=== PATIENT | female | born 1985 | race Caucasian/White ===

== ENCOUNTER 2019-12-17 15:23 | Emergency (ER) | payer OTHER, SELFPAY ==
[2019-12-17] VITALS (12 sets, daily range): BP systolic 116–128; BP diastolic 72–83; PULSE 62–87; RESP 16–25; TEMP 36.9; O2SAT 96–100; BMI 21.1
[2019-12-17 16:23] LABS: Add Manual Diff / Slide Review NO; Basophils Absolute Auto 0 /uL (0-100); Basophils Percent Auto 0.5 % (0-2); Eosinophils Absolute Auto 0 /uL (0-450); Eosinophils Percent Auto 0.7 % (2-4); Hematocrit 33.7 % (36-46); Hemoglobin 11.3 g/dL (12.0-16.0); Lymphocytes Absolute Auto 1500 /uL (1100-4500); Mean Corpuscular HGB Conc 33.6 % (30-36); Mean Corpuscular Hemoglobin 28.6 PG (26-34); Mean Corpuscular Volume 85.1 fL (80-100); Monocytes Absolute Auto 400 /uL (0-900); Monocytes Percent Auto 6.2 % (3-14); Neutrophils Absolute Auto 4100 /uL (1500-7000); Neutrophils Percent Auto 67.6 % (50-75); Platelet Count 213 X10^3/uL (150-400); Red Blood Cell Count 3.95 X10^6/uL (4.0-5.2); Red Cell Distribution Width 13.2 % (11.6-14.8); White Blood Cell Count 6.1 X10^3/uL (4.5-11.0)
[2019-12-17 16:31] LABS: INR 1.1 (0.9-1.3); Prothrombin Time 12.4 SECONDS (10.1-12.7)
[2019-12-17 16:34] LABS: D Dimer 939 ng/mL (<230); PTT Partial Thromboplastin Tim 41 SECONDS (26.4-36.2)
[2019-12-17 16:37] LABS: Lactate (Lactic Acid) 0.8 mmol/L (0.7-2.1)
[2019-12-17 16:39] LABS: Alanine Aminotransferase 25 IU/L (<35); Albumin 3.4 g/dL (3.5-5.0); Albumin Globulin Ratio 1.1 (1.0-2.8); Alkaline Phosphatase 62 U/L (38-126); Aspartate Aminotransferase 40 IU/L (14-36); BUN Creatinine Ratio 7.9 (6-22); Bilirubin Total 0.4 mg/dL (0.2-1.3); Blood Urea Nitrogen 7 mg/dL (7-17); Calcium 8.7 mg/dL (8.4-10.2); Carbon Dioxide 28 mmol/L (22-32); Chloride 107 mmol/L (98-107); Creatine Kinase 70 U/L (30-135); Estimated Glomerular Filt Rate > 60.0 mL/min (>60); Glucose 97 mg/dL (70-100); HEMOLYSIS < 15 (0-50); Magnesium 1.8 mg/dL (1.6-2.3); Potassium 3.6 mmol/L (3.4-5.1); Sodium 140 mmol/L (137-145); Total Protein 6.4 g/dL (6.3-8.2)
[2019-12-17 16:47] LABS: NT-proBNP (BNP-Adult 18+) 668 pg/mL (<125)
[2019-12-17 16:49] LABS: Troponin I < 0.012 ng/mL (0.01-0.034)
--- NOTE | 2019-12-17 16:53 | DI.CT.S_ITS ---
PROCEDURE: CT ANGIO CHEST PE PROTOCOL INDICATIONS: sob, post op, + ddimer TECHNIQUE: After the administration of intravenous contrast, 2 mm thick sections acquired from the pulmonary apices to the posterior costophrenic angles. 3-dimensional maximum intensity projection (MIP) coronal and sagittal reformats were then acquired through the thorax. For radiation dose reduction, the following was used: automated exposure control, adjustment of mA and/or kV according to patient size. COMPARISON: None. FINDINGS: Image quality: Excellent. Pulmonary arteries: There is enlargement of the main pulmonary artery, measuring up to 3.5 centimeters in diameter. No intraluminal filling defects are seen to suggest central pulmonary embolism. Lungs and pleura: Mild tree-in-bud nodularity is seen in the posterior portion of the right upper lobe, which is most likely infectious or inflammatory in etiology. The remainders of the lungs are clear. Small bilateral pleural effusions are present with atelectasis of the adjacent lung bases. There is no pneumothorax. Central and peripheral airways are patent. Mediastinum: Heart size is within normal limits, without pericardial effusion. No mediastinal or hilar adenopathy. Thoracic aorta is normal in caliber and enhancement. Esophagus is normal in caliber, without hiatal hernia. Bones and chest wall: No suspicious bony lesions. Ribs and thoracic spine appear intact throughout. Thyroid gland appears normal. No axillary or supraclavicular adenopathy. Abdomen: A 9 millimeter hypodense lesion in the right hepatic lobe is most likely a cyst. Visualized upper abdominal solid organs appear normal in the early arterial phase of enhancement. IMPRESSION: 1. No pulmonary embolism is seen. 2. Enlargement of the main pulmonary artery is seen measuring up to 3.5 centimeters in diameter, which is nonspecific but can be encountered in the setting of pulmonary hypertension. 3. Mild tree-in-bud nodularity in the posterior portion of the right upper lobe is most likely infectious or inflammatory in etiology. Recommend clinical correlation. 4. Small bilateral pleural effusions with atelectasis of the adjacent lung bases. Dictated by: Zen Villafuerte M.D. on 12/17/2019 at 17:17 Approved by: Zen Villafuerte M.D. on 12/17/2019 at 17:26
--- NOTE | 2019-12-17 16:53 | DI.CT.S_ITS ---
PROCEDURE: CT ABDOMEN PELVIS W CON INDICATIONS: post op appy, abscess TECHNIQUE: After the administration of intravenous contrast, 5 mm thick sections acquired from the diaphragm to the symphysis. 5 mm coronal and sagittal reformats were acquired. For radiation dose reduction, the following was used: automated exposure control, adjustment of mA and/or kV according to patient size. COMPARISON: None. FINDINGS: Image quality: Excellent. ABDOMEN: Lung bases: Small bilateral pleural effusions are seen with atelectasis of the adjacent lung bases. Solid organs: Subcentimeter hypodense lesions in the right hepatic lobe are too small to characterize, but most likely represents a cyst. The gallbladder appears normal. Biliary system is non dilated. Pancreas enhances normally. Spleen is normal in size and enhancement. No adrenal nodules. Kidneys demonstrate normal size and enhancement, without hydronephrosis. Peritoneum and bowel: Postsurgical changes are seen from recent appendectomy. There are no signs of bowel obstruction. A surgical drain is seen in the lower abdomen. A small amount of free fluid is seen in the pelvis. No definite well-formed abscess is seen. A small amount of pneumoperitoneum is seen adjacent to the tip of the surgical drain, most likely related to the prior surgery. Nodes and vessels: No retroperitoneal or mesenteric adenopathy by size criteria. Aorta and inferior vena cava are normal in size. Miscellaneous: No ventral hernias. PELVIS: Genitourinary: Bladder wall thickness is normal. The uterus appears normal. Small cysts are seen in both ovaries. Miscellaneous: No inguinal hernias or adenopathy. Bones: No suspicious bony lesions. No vertebral body compression fractures. IMPRESSION: 1. Postsurgical changes are seen from recent appendectomy. A small amount of free fluid is seen in the pelvis without a well-formed abscess. 2. Small bilateral pleural effusions with atelectasis of the adjacent lung bases. Dictated by: Zen Villafuerte M.D. on 12/17/2019 at 17:26 Approved by: Zen Villafuerte M.D. on 12/17/2019 at 17:34
[2019-12-17 16:55] LABS: Procalcitonin < 0.05 ng/mL (<0.5)
[2019-12-17 16:58] LABS: Pregnancy Test Serum,Qual Negative (Negative)
--- NOTE | 2019-12-17 18:26 | DI.US.S_ITS ---
PROCEDURE: US PERIPH VENOUS LOW EXTREM BI INDICATIONS: EDEMA, PAIN; RECENT SURGERY; DVT 6 YRS AGO TECHNIQUE: Real-time imaging, as well as color and pulse Doppler interrogation, were performed of the deep veins of both legs from the inguinal ligament to the popliteal fossa. COMPARISON: None. FINDINGS: Right: The common femoral, femoral and popliteal veins are normally compressible, and free of intraluminal thrombus. Color and pulse Doppler demonstrate normal phasic intravascular flow. There is normal augmentation response to distal compression maneuver. Left: The common femoral, femoral and popliteal veins are normally compressible, and free of intraluminal thrombus. Color and pulse Doppler demonstrate normal phasic intravascular flow. There is normal augmentation response to distal compression maneuver. IMPRESSION: Negative for deep venous thrombosis of the bilateral lower extremities. Dictated by: Zen Villafuerte M.D. on 12/17/2019 at 19:46 Approved by: Zen Villafuerte M.D. on 12/17/2019 at 19:47
[2019-12-17] MEDS: AMOXICILLIN/CLAV 875/125 MG 1 TAB PO (20:12)
[2019-12-17] MEDS: DOXYCYCLINE HYCLATE 100 MG TABLET PO (20:13)
[2019-12-17] MEDS: HYDROCODONE/ACET 5/325 TABLET 1 TAB PO (20:47)
--- NOTE | 2019-12-17 21:00 | ED_ITS ---
HPI - SOB/Dyspnea <FAROOQ RasmussenBC - Last Filed: 12/17/19 21:08> General Chief Complaint: Shortness of Breath/Dyspnea Stated Complaint: Possible PE Time Seen by Provider: 12/17/19 15:55 Source: patient and family Mode of arrival: EMS Limitations: no limitations History of Present Illness HPI Narrative: The patient is a 34-year-old female nonsmoker with history of recent acute appendicitis who presents by EMS from an outside facility. The patient had an appendectomy done on Monday the . This was done at [facility] by Dr. Camp and was complicated with an abscess resulting in a DENNYS drain. The patient presented to [facility] today with a chief complaint of shortness of breath and slight substernal chest pain after having ?twinges in the calves.She was found to have an elevated D-dimer and BNP there, was referred to this facility by EMS as there is concern for a pulmonary embolism and her CT scanner is down. The patient has also had a DVT post prior. She states that she has some substernal chest pain, does not want any pain medications. She states that both of her legs are swollen, left likely worse than right. Denies any fevers, does complain of fatigue. She is not currently taking any antibiotics at this point time. Related Data Previous Rx's Medication Instructions Recorded amoxicillin-pot clavulanate 1 tab PO BID 7 Days #14 tab 12/17/19 [Augmentin] doxycycline hyclate 100 mg PO BID 7 Days #14 cap 12/17/19 Allergies Allergy/AdvReac Type Severity Reaction Status Date / Time No Known Drug Allergies Allergy Verified 12/17/19 15:37 Review of Systems <RAQUEL Rasmussen - Last Filed: 12/17/19 21:08> Review of Systems Narrative: GENERAL: Denies chills, fatigue, malaise, fever, sweats. HEENT: Denies sinus pain, ear pain, sore throat, difficulty swallowing, dizziness. RESPIRATORY: See HPI CARDIOVASCULAR: Denies chest pain, palpitations, orthopnea, edema, GASTROINTESTINAL: See HPI : Denies dysuria, frequency, incontinence, hematuria, urinary retention. MUSCULOSKELETAL: denies weakness, joint pain, or bony pain SKIN: Denies rash, skin lesions, or other NEUROLOGIC: Denies weakness, headache, numbness, change in speech, confusion, seizures, incoordination. PSYCHIATRIC: No concerning psychosocial issues. 12 point review of systems is negative except for those stated above Patient History <RAQUEL Rasmussen - Last Filed: 12/17/19 21:08> Surgical History (Updated 12/17/19 @ 21:02 by RAQUEL Rasmussen) History of appendectomy (Acute) Social History Smoking Status: Never smoker Smoking Status: Never smoker alcohol intake frequency: holidays/special occasions only Substance Use Type: does not use Exam <RAQUEL Rasmussen - Last Filed: 12/17/19 21:08> Narrative Exam Narrative: GENERAL: This is a well-nourished, well-developed patient, in no acute distress HEAD: Atraumatic. Normocephalic. No temporal or scalp tenderness. EYES: Pupils equal round and reactive. Extraocular motions intact. No scleral icterus. No injection or drainage. ENT: Nose without bleeding, purulent drainage or septal hematoma. Wearing mass. Airway patent. NECK: Trachea midline. No JVD or lymphadenopathy. Supple, nontender, no meningeal signs. CARDIOVASCULAR: Regular rate and rhythm RESPIRATORY: Clear to auscultation. Breath sounds equal bilaterally. No wheezes, rales, or rhonchi. No cough. No increased respiratory effort. No accessory muscle use. Speaking full sentences. GASTROINTESTINAL: Abdomen soft, diffusely tender, nondistended. No hepato-sple nomegaly, or palpable masses. No guarding. Active bowel sounds all [address] quadrants. DENN[address] drain in place with serosanguineous drainage. EXTREMITIES: No clubbing, cyanosis, or edema. No joint tenderness, effusion, or edema noted. BACK: Nontender without deformity or crepitance. No flank tenderness. NEURO: AOx3. SKIN: Postoperative abdominal surgeons clean dry and intact, no extending redness or purulent drainage Initial Vital Signs Initial Vital Signs: Vital Signs Pulse Rate 71 12/17/19 15:37 Pulse Oximetry 97 12/17/19 15:37 <Smiley Marroquin MD - Last Filed: 12/20/19 12:56> Initial Vital Signs Initial Vital Signs: Vital Signs Pulse Rate 71 12/17/19 15:37 Pulse Oximetry 97 12/17/19 15:37 Scores <MAHESH Rasmussen-BC - Last Filed: 12/17/19 21:08> GCS Mariella coma scale eye opening: Spontaneous Mariella coma scale verbal response: Orientated Mariella coma scale motor response: Obey commands [place] coma scale total score: 15 Course <MAHESH Rasmussen-BC - Last Filed: 12/17/19 21:08> Orders Ordered: Discontinued Medications Hydrocodone Bitart/Acetaminophen ([place] 5/325) 1 tab PO NOW ONE Stop: 12/17/19 20:32 Last Admin: 12/17/19 20:47 Dose: 1 tab Documented by: MICHAELM Amoxicillin/Clavulanate Potassium (Augmentin 875-125 Mg) 1 tab PO NOW ONE Stop: 12/17/19 19:57 Last Admin: 12/17/19 20:12 Dose: 1 tab Documented by: SUDHIR Doxycycline Hyclate (Vibramycin) 100 mg PO NOW ONE Stop: 12/17/19 19:57 Last Admin: 12/17/19 20:13 Dose: 100 mg Documented by: SUDHIR Vital Signs Vital signs: Vital Signs - 8 hr 12/17/19 15:37 12/17/19 15:38 12/17/19 16:00 Temperature Pulse Rate 71 71 75 Respiratory Rate 17 Blood Pressure 126/80 124/78 Pulse Oximetry 97 98 98 12/17/19 16:30 12/17/19 17:16 12/17/19 17:30 Temperature Pulse Rate 67 77 62 Respiratory Rate 18 18 Blood Pressure 128/82 Pulse Oximetry 99 96 100 12/17/19 17:38 12/17/19 18:00 12/17/19 18:30 Temperature Pulse Rate 72 66 63 Respiratory Rate 16 17 16 Blood Pressure 123/79 119/77 116/75 Pulse Oximetry 100 100 99 12/17/19 19:00 12/17/19 19:30 12/17/19 20:55 Temperature 98.5 F Pulse Rate 63 87 63 Respiratory Rate 16 25 H 16 Blood Pressure 117/72 117/82 126/83 Pulse Oximetry 97 98 <Smiley Marroquin MD - Last Filed: 12/20/19 12:56> Orders Ordered: Discontinued Medications Hydrocodone Bitart/Acetaminophen ([place] 5/325) 1 tab PO NOW ONE Stop: 12/17/19 20:32 Last Admin: 12/17/19 20:47 Dose: 1 tab Documented by: PARTHOTEM Amoxicillin/Clavulanate Potassium (Augmentin 875-125 Mg) 1 tab PO NOW ONE Stop: 12/17/19 19:57 Last Admin: 12/17/19 20:12 Dose: 1 tab Documented by: SUDHIR Doxycycline Hyclate (Vibramycin) 100 mg PO NOW ONE Stop: 12/17/19 19:57 Last Admin: 12/17/19 20:13 Dose: 100 mg Documented by: SUDHIR Vital Signs Vital signs: Vital Signs - 8 hr 12/17/19 15:37 12/17/19 15:38 12/17/19 16:00 Temperature Pulse Rate 71 71 75 Respiratory Rate 17 Blood Pressure 126/80 124/78 Pulse Oximetry 97 98 98 12/17/19 16:30 12/17/19 17:16 12/17/19 17:30 Temperature Pulse Rate 67 77 62 Respiratory Rate 18 18 Blood Pressure 128/82 Pulse Oximetry 99 96 100 12/17/19 17:38 12/17/19 18:00 12/17/19 18:30 Temperature Pulse Rate 72 66 63 Respiratory Rate 16 17 16 Blood Pressure 123/79 119/77 116/75 Pulse Oximetry 100 100 99 12/17/19 19:00 12/17/19 19:30 12/17/19 20:55 Temperature 98.5 F Pulse Rate 63 87 63 Respiratory Rate 16 25 H 16 Blood Pressure 117/72 117/82 126/83 Pulse Oximetry 97 98 MDM - SOB/Dyspnea <MAHESH Rasmussen-BC - Last Filed: 12/17/19 21:08> Lab Data Result diagrams: 12/17/19 16:13 12/17/19 16:13 Labs: Lab Results 12/17/19 12/17/19 12/17/19 Range/Units 16:13 16:13 16:13 WBC (4.5-11.0) X10^3/uL RBC (4.0-5.2) X10^6/uL Hgb (12.0-16.0) g/dL Hct (36-46) % MCV (80-100) fL MCH (26-34) PG MCHC (30-36) % RDW (11.6-14.8) % Plt Count (150-400) X10^3/uL Neut % (Auto) (50-75) % Lymph % (Auto) (25-40) % Frontier % (Auto) (3-14) % Eos % (Auto) (2-4) % Baso % (Auto) (0-2) % Neut # (Auto) (8594-8520) /uL Lymph # (Auto) (2721-0386) /uL Frontier # (Auto) (0-900) /uL Eos # (Auto) (0-450) /uL Baso # (Auto) (0-100) /uL PT 12.4 (10.1-12.7) SECONDS INR 1.1 (0.9-1.3) APTT 41 H (26.4-36.2) SECONDS D-Dimer 939 H (<230) ng/mL Sodium (137-145) mmol/L Potassium (3.4-5.1) mmol/L Chloride (98-107) mmol/L Carbon Dioxide (22-32) mmol/L BUN (7-17) mg/dL Creatinine (0.52-1.04) mg/dL Estimated GFR (>60) mL/min BUN/Creatinine Ratio (6-22) Glucose (70-100) mg/dL Lactate (0.7-2.1) mmol/L Calcium (8.4-10.2) mg/dL Magnesium (1.6-2.3) mg/dL Total Bilirubin (0.2-1.3) mg/dL AST (14-36) IU/L ALT (<35) IU/L Alkaline Phosphatase (38-126) U/L Total Creatine Kinase (30-135) U/L CK-MB (CK-2) CK-MB (CK-2) Rel Index Troponin I (0.01-0.034) ng/mL NT-Pro-B Natriuret Pep 668 H (<125) pg/mL Total Protein (6.3-8.2) g/dL Albumin (3.5-5.0) g/dL Globulin (1.7-4.1) g/dL Albumin/Globulin Ratio (1.0-2.8) Procalcitonin (<0.5) ng/mL Serum , Qual Negative (Negative) COVID-19 PCR (Not Detected) 12/17/19 12/17/1920 Range/Units 16:13 16:13 16:13 WBC 6.1 (4.5-11.0) X10^3/uL RBC 3.95 L (4.0-5.2) X10^6/uL Hgb 11.3 L (12.0-16.0) g/dL Hct 33.7 L (36-46) % MCV 85.1 (80-100) fL MCH 28.6 (26-34) PG MCHC 33.6 (30-36) % RDW 13.2 (11.6-14.8) % Plt Count 213 (150-400) X10^3/uL Neut % (Auto) 67.6 (50-75) % Lymph % (Auto) 25.0 (25-40) % Frontier % (Auto) 6.2 (3-14) % Eos % (Auto) 0.7 L (2-4) % Baso % (Auto) 0.5 (0-2) % Neut # (Auto) 4100 (9939-1280) /uL Lymph # (Auto) 1500 (2410-5055) /uL Frontier # (Auto) 400 (0-900) /uL Eos # (Auto) 0 (0-450) /uL Baso # (Auto) 0 (0-100) /uL PT (10.1-12.7) SECONDS INR (0.9-1.3) APTT (26.4-36.2) SECONDS D-Dimer (<230) ng/mL Sodium 140 (137-145) mmol/L Potassium 3.6 (3.4-5.1) mmol/L Chloride 107 (98-107) mmol/L Carbon Dioxide 28 (22-32) mmol/L BUN 7 (7-17) mg/dL Creatinine 0.89 (0.52-1.04) mg/dL Estimated GFR > 60.0 (>60) mL/min BUN/Creatinine Ratio 7.9 (6-22) Glucose 97 (70-100) mg/dL Lactate (0.7-2.1) mmol/L Calcium 8.7 (8.4-10.2) mg/dL Magnesium 1.8 (1.6-2.3) mg/dL Total Bilirubin 0.4 (0.2-1.3) mg/dL AST 40 H (14-36) IU/L ALT 25 (<35) IU/L Alkaline Phosphatase 62 (38-126) U/L Total Creatine Kinase 70 (30-135) U/L CK-MB (CK-2) TNP CK-MB (CK-2) Rel Index TNP Troponin I < 0.012 (0.01-0.034) ng/mL NT-Pro-B Natriuret Pep (<125) pg/mL Total Protein 6.4 (6.3-8.2) g/dL Albumin 3.4 L (3.5-5.0) g/dL Globulin 3.0 (1.7-4.1) g/dL Albumin/Globulin Ratio 1.1 (1.0-2.8) Procalcitonin < 0.05 (<0.5) ng/mL Serum , Qual (Negative) COVID-19 PCR (Not Detected) 12/17/19 12/17/19 Range/Units 16:13 20:50 WBC (4.5-11.0) X10^3/uL RBC (4.0-5.2) X10^6/uL Hgb (12.0-16.0) g/dL Hct (36-46) % MCV (80-100) fL MCH (26-34) PG MCHC (30-36) % RDW (11.6-14.8) % Plt Count (150-400) X10^3/uL Neut % (Auto) (50-75) % Lymph % (Auto) (25-40) % Frontier % (Auto) (3-14) % Eos % (Auto) (2-4) % Baso % (Auto) (0-2) % Neut # (Auto) (2252-8753) /uL Lymph # (Auto) (6708-4668) /uL Frontier # (Auto) (0-900) /uL Eos # (Auto) (0-450) /uL Baso # (Auto) (0-100) /uL PT (10.1-12.7) SECONDS INR (0.9-1.3) APTT (26.4-36.2) SECONDS D-Dimer (<230) ng/mL Sodium (137-145) mmol/L Potassium (3.4-5.1) mmol/L Chloride (98-107) mmol/L Carbon Dioxide (22-32) mmol/L BUN (7-17) mg/dL Creatinine (0.52-1.04) mg/dL Estimated GFR (>60) mL/min BUN/Creatinine Ratio (6-22) Glucose (70-100) mg/dL Lactate 0.8 (0.7-2.1) mmol/L Calcium (8.4-10.2) mg/dL Magnesium (1.6-2.3) mg/dL Total Bilirubin (0.2-1.3) mg/dL AST (14-36) IU/L ALT (<35) IU/L Alkaline Phosphatase (38-126) U/L Total Creatine Kinase (30-135) U/L CK-MB (CK-2) CK-MB (CK-2) Rel Index Troponin I (0.01-0.034) ng/mL NT-Pro-B Natriuret Pep (<125) pg/mL Total Protein (6.3-8.2) g/dL Albumin (3.5-5.0) g/dL Globulin (1.7-4.1) g/dL Albumin/Globulin Ratio (1.0-2.8) Procalcitonin (<0.5) ng/mL Serum , Qual (Negative) COVID-19 PCR Not detected (Not Detected) Point of Care Testing Test Results Negative Urine Dip Bedside Urine Glucose Negative Bedside Urine Bilirubin - Negative Bedside Urine Ketone - Negative Urine Specific Brooks 1.010 Bedside Urine Occult Blood - Negative Bedside Urine pH 8.0 Bedside Urine Protein - Negative Bedside Urine Urobilinogen - Negative Bedside Urine Nitrite - Negative Bedside Urine Leukocytes - Negative Esterase Imaging Data US - DVT: Radiologist's Impression: [facility] [place] [address] Ultrasound Report Signed Patient: Pao Smith#: [id number] : 1985Acct:[id number] Age/Sex: 34 / FDate of Service: 12/17/19 Loc: ED Accession Number: [id number] Procedure: US periph venous low extrem bi Ordering Provider: Filomena Argueta TRAVELING ACCOUNTANT- PROCEDURE: US PERIPH VENOUS LOW EXTREM BI INDICATIONS: EDEMA, PAIN; RECENT SURGERY; DVT 6 YRS AGO TECHNIQUE: Real-time imaging, as well as color and pulse Doppler interrogation, were performed of the deep veins of both legs from the inguinal ligament to the popliteal fossa. COMPARISON: None. FINDINGS: Right: The common femoral, femoral and popliteal veins are normally compressible, and free of intraluminal thrombus. Color and pulse Doppler demonstrate normal phasic intravascular flow. There is normal augmentation response to distal compression maneuver. Left: The common femoral, femoral and popliteal veins are normally compressible, and free of intraluminal thrombus. Color and pulse Doppler demonstrate normal phasic intravascular flow. There is normal augmentation response to distal compression maneuver. IMPRESSION: Negative for deep venous thrombosis of the bilateral lower extremities. Dictated by: Zen Villafuerte M.D. on 12/17/2019 at 19:46 Approved by: Zen Villafuerte M.D. on 12/17/2019 at 19:47 CT scan - chest: Radiologist's Impression: [address] [place] [id number] Scan Report Signed Patient: Yolanda SmithMR#: [id number] : 1985Acct:[id number] Age/Sex: 34 / FDate of Service: 12/17/19 Loc: ED Accession Number: [id number] Procedure: CT angio chest PE protocol Ordering Provider: Filomena Argueta [facility] PROCEDURE: CT ANGIO CHEST PE PROTOCOL INDICATIONS: sob, post op, + ddimer TECHNIQUE: After the administration of intravenous contrast, 2 mm thick sections acquired from the pulmonary apices to the posterior costophrenic angles. 3-dimensional maximum intensity projection (MIP) coronal and sagittal reformats were then acquired through the thorax. For radiation dose reduction, the following was used: automated exposure control, adjustment of mA and/or kV according to patient size. COMPARISON: None. FINDINGS: Image quality: Excellent. Pulmonary arteries: There is enlargement of the main pulmonary artery, measuring up to 3.5 centimeters in diameter. No intraluminal filling defects are seen to suggest central pulmonary embolism. Lungs and pleura: Mild tree-in-bud nodularity is seen in the posterior portion of the right upper lobe, which is most likely infectious or inflammatory in etiology. The remainders of the lungs are clear. Small bilateral pleural effusions are present with atelectasis of the adjacent lung bases. There is no pneumothorax. Central and peripheral airways are patent. Mediastinum: Heart size is within normal limits, without pericardial effusion. No mediastinal or hilar adenopathy. Thoracic aorta is normal in caliber and enhancement. Esophagus is normal in caliber, without hiatal hernia. Bones and chest wall: No suspicious bony lesions. Ribs and thoracic spine appear intact throughout. Thyroid gland appears normal. No axillary or supraclavicular adenopathy. Abdomen: A 9 millimeter hypodense lesion in the right hepatic lobe is most likely a cyst. Visualized upper abdominal solid organs appear normal in the early arterial phase of enhancement. IMPRESSION: 1. No pulmonary embolism is seen. 2. Enlargement of the main pulmonary artery is seen measuring up to 3.5 centimeters in diameter, which is nonspecific but can be encountered in the setting of pulmonary hypertension. 3. Mild tree-in-bud nodularity in the posterior portion of the right upper lobe is most likely infectious or inflammatory in etiology. Recommend clinical correlation. 4. Small bilateral pleural effusions with atelectasis of the adjacent lung bases. Dictated by: Zen Villafuerte M.D. on 12/17/2019 at 17:17 Approved by: Zen Villafuerte M.D. on 12/17/2019 at 17:26 CT scan - abdomen/pelvis: Radiologist's Impression: [address] [place] [address] CT Scan Report Signed Patient: Yolanda Smith#: [id number] : 1985Acct:[id number] Age/Sex: 34 / FDate of Service: 12/17/19 Loc: ED Accession Number: [id number] Procedure: CT abdomen pelvis w con Ordering Provider: Filomena Argueta [facility] PROCEDURE: CT ABDOMEN PELVIS W CON INDICATIONS: post op appy, abscess TECHNIQUE: After the administration of intravenous contrast, 5 mm thick sections acquired from the diaphragm to the symphysis. 5 mm coronal and sagittal reformats were acquired. For radiation dose reduction, the following was used: automated exposure control, adjustment of mA and/or kV according to patient size. COMPARISON: None. FINDINGS: Image quality: Excellent. ABDOMEN: Lung bases: Small bilateral pleural effusions are seen with atelectasis of the adjacent lung bases. Solid organs: Subcentimeter hypodense lesions in the right hepatic lobe are too small to characterize, but most likely represents a cyst. The gallbladder appears normal. Biliary system is non dilated. Pancreas enhances normally. Spleen is normal in size and enhancement. No adrenal nodules. Kidneys demonstrate normal size and enhancement, without hydronephrosis. Peritoneum and bowel: Postsurgical changes are seen from recent appendectomy. There are no signs of bowel obstruction. A surgical drain is seen in the lower abdomen. A small amount of free fluid is seen in the pelvis. No definite well-formed abscess is seen. A small amount of pneumoperitoneum is seen adjacent to the tip of the surgical drain, most likely related to the prior surgery. Nodes and vessels: No retroperitoneal or mesenteric adenopathy by size criteria. Aorta and inferior vena cava are normal in size. Miscellaneous: No ventral hernias. PELVIS: Genitourinary: Bladder wall thickness is normal. The uterus appears normal. Small cysts are seen in both ovaries. Miscellaneous: No inguinal hernias or adenopathy. Bones: No suspicious bony lesions. No vertebral body compression fractures. IMPRESSION: 1. Postsurgical changes are seen from recent appendectomy. A small amount of free fluid is seen in the pelvis without a well-formed abscess. 2. Small bilateral pleural effusions with atelectasis of the adjacent lung bases. Dictated by: Zen Villafuerte M.D. on 12/17/2019 at 17:26 Approved by: Zen Villafuerte M.D. on 12/17/2019 at 17:34 ECG Data Attestation: I personally reviewed and interpreted this ECG as follows: Interpretation: Sinus rhythm. Ventricular rate 67. P.r. interval 122. QRS 92. Viewed by Dr. Marroquin MDM Narrative Medical decision making narrative: The patient is a 34-year-old female who presents by EMS for concern of a possible postoperative PE. She had an appendectomy on Monday. Patient's CTA comes back negative for any pulmonary embolism she is noted to have a mild tree-in-bud nodularity in the right upper lobe, consistent with infectious or inflammatory etiology. Given that the pat ient was recently inpatient, had surgery was intubated, this is most likely to be infectious at this point time. Discussed patient with Dr. Marroquin. Elected to treat with antibiotics, patient was placed on Augmentin and doxycycline as per up-to-date recommendations. Patient's coronavirus test was pending, taken due to her concern of symptoms. I did discuss with the patient this slightly enlarged pulmonary artery, requested follow-up in the next few days with PCP. I did discuss that her elevated D-dimer might be due to healing from surgery. Did discuss at length taking probiotics or yogurt. Patient was able to tolerate p.o. food and fluids as well as antibiotics in the emergency department. No questions or concerns upon discharge states understanding return precautions as well as follow-up care. <Smiley Marroquin MD - Last Filed: 12/20/19 12:56> Lab Data Labs: Lab Results 12/17/19 12/17/19 12/17/19 Range/Units 16:13 16:13 16:13 WBC (4.5-11.0) X10^3/uL RBC (4.0-5.2) X10^6/uL Hgb (12.0-16.0) g/dL Hct (36-46) % MCV (80-100) fL MCH (26-34) PG MCHC (30-36) % RDW (11.6-14.8) % Plt Count (150-400) X10^3/uL Neut % (Auto) (50-75) % Lymph % (Auto) (25-40) % Frontier % (Auto) (3-14) % Eos % (Auto) (2-4) % Baso % (Auto) (0-2) % Neut # (Auto) (4349-6045) /uL Lymph # (Auto) (6910-4403) /uL Frontier # (Auto) (0-900) /uL Eos # (Auto) (0-450) /uL Baso # (Auto) (0-100) /uL PT 12.4 (10.1-12.7) SECONDS INR 1.1 (0.9-1.3) APTT 41 H (26.4-36.2) SECONDS D-Dimer 939 H (<230) ng/mL Sodium (137-145) mmol/L Potassium (3.4-5.1) mmol/L Chloride (98-107) mmol/L Carbon Dioxide (22-32) mmol/L BUN (7-17) mg/dL Creatinine (0.52-1.04) mg/dL Estimated GFR (>60) mL/min BUN/Creatinine Ratio (6-22) Glucose (70-100) mg/dL Lactate (0.7-2.1) mmol/L Calcium (8.4-10.2) mg/dL Magnesium (1.6-2.3) mg/dL Total Bilirubin (0.2-1.3) mg/dL AST (14-36) IU/L ALT (<35) IU/L Alkaline Phosphatase (38-126) U/L Total Creatine Kinase (30-135) U/L CK-MB (CK-2) CK-MB (CK-2) Rel Index Troponin I (0.01-0.034) ng/mL NT-Pro-B Natriuret Pep 668 H (<125) pg/mL Total Protein (6.3-8.2) g/dL Albumin (3.5-5.0) g/dL Globulin (1.7-4.1) g/dL Albumin/Globulin Ratio (1.0-2.8) Procalcitonin (<0.5) ng/mL Serum , Qual Negative (Negative) COVID-19 PCR (Not Detected) 12/17/19 12/17/19 12/17/19 Range/Units 16:13 16:13 16:13 WBC 6.1 (4.5-11.0) X10^3/uL RBC 3.95 L (4.0-5.2) X10^6/uL Hgb 11.3 L (12.0-16.0) g/dL Hct 33.7 L (36-46) % MCV 85.1 (80-100) fL MCH 28.6 (26-34) PG MCHC 33.6 (30-36) % RDW 13.2 (11.6-14.8) % Plt Count 213 (150-400) X10^3/uL Neut % (Auto) 67.6 (50-75) % Lymph % (Auto) 25.0 (25-40) % Frontier % (Auto) 6.2 (3-14) % Eos % (Auto) 0.7 L (2-4) % Baso % (Auto) 0.5 (0-2) % Neut # (Auto) 4100 (5003-1140) /uL Lymph # (Auto) 1500 (1222-6870) /uL Frontier # (Auto) 400 (0-900) /uL Eos # (Auto) 0 (0-450) /uL Baso # (Auto) 0 (0-100) /uL PT (10.1-12.7) SECONDS INR (0.9-1.3) APTT (26.4-36.2) SECONDS D-Dimer (<230) ng/mL Sodium 140 (137-145) mmol/L Potassium 3.6 (3.4-5.1) mmol/L Chloride 107 (98-107) mmol/L Carbon Dioxide 28 (22-32) mmol/L BUN 7 (7-17) mg/dL Creatinine 0.89 (0.52-1.04) mg/dL Estimated GFR > 60.0 (>60) mL/min BUN/Creatinine Ratio 7.9 (6-22) Glucose 97 (70-100) mg/dL Lactate (0.7-2.1) mmol/L Calcium 8.7 (8.4-10.2) mg/dL Magnesium 1.8 (1.6-2.3) mg/dL Total Bilirubin 0.4 (0.2-1.3) mg/dL AST 40 H (14-36) IU/L ALT 25 (<35) IU/L Alkaline Phosphatase 62 (38-126) U/L Total Creatine Kinase 70 (30-135) U/L CK-MB (CK-2) TNP CK-MB (CK-2) Rel Index TNP Troponin I < 0.012 (0.01-0.034) ng/mL NT-Pro-B Natriuret Pep (<125) pg/mL Total Protein 6.4 (6.3-8.2) g/dL Albumin 3.4 L (3.5-5.0) g/dL Globulin 3.0 (1.7-4.1) g/dL Albumin/Globulin Ratio 1.1 (1.0-2.8) Procalcitonin < 0.05 (<0.5) ng/mL Serum , Qual (Negative) COVID-19 PCR (Not Detected) 12/17/19 12/17/19 Range/Units 16:13 20:50 WBC (4.5-11.0) X10^3/uL RBC (4.0-5.2) X10^6/uL Hgb (12.0-16.0) g/dL Hct (36-46) % MCV (80-100) fL MCH (26-34) PG MCHC (30-36) % RDW (11.6-14.8) % Plt Count (150-400) X10^3/uL Neut % (Auto) (50-75) % Lymph % (Auto) (25-40) % Frontier % (Auto) (3-14) % Eos % (Auto) (2-4) % Baso % (Auto) (0-2) % Neut # (Auto) (1103-8840) /uL Lymph # (Auto) (8038-5349) /uL Frontier # (Auto) (0-900) /uL Eos # (Auto) (0-450) /uL Baso # (Auto) (0-100) /uL PT (10.1-12.7) SECONDS INR (0.9-1.3) APTT (26.4-36.2) SECONDS D-Dimer (<230) ng/mL Sodium (137-145) mmol/L Potassium (3.4-5.1) mmol/L Chloride (98-107) mmol/L Carbon Dioxide (22-32) mmol/L BUN (7-17) mg/dL Creatinine (0.52-1.04) mg/dL Estimated GFR (>60) mL/min BUN/Creatinine Ratio (6-22) Glucose (70-100) mg/dL Lactate 0.8 (0.7-2.1) mmol/L Calcium (8.4-10.2) mg/dL Magnesium (1.6-2.3) mg/dL Total Bilirubin (0.2-1.3) mg/dL AST (14-36) IU/L ALT (<35) IU/L Alkaline Phosphatase (38-126) U/L Total Creatine Kinase (30-135) U/L CK-MB (CK-2) CK-MB (CK-2) Rel Index Troponin I (0.01-0.034) ng/mL NT-Pro-B Natriuret Pep (<125) pg/mL Total Protein (6.3-8.2) g/dL Albumin (3.5-5.0) g/dL Globulin (1.7-4.1) g/dL Albumin/Globulin Ratio (1.0-2.8) Procalcitonin (<0.5) ng/mL Serum , Qual (Negative) COVID-19 PCR Not detected (Not Detected) Point of Care Testing Test Results Negative Urine Dip Bedside Urine Glucose Negative Bedside Urine Bilirubin - Negative Bedside Urine Ketone - Negative Urine Specific Brooks 1.010 Bedside Urine Occult Blood - Negative Bedside Urine pH 8.0 Bedside Urine Protein - Negative Bedside Urine Urobilinogen - Negative Bedside Urine Nitrite - Negative Bedside Urine Leukocytes - Negative Esterase Discharge Plan Departure Patient Disposition: Home Clinical Impression: Community acquired pneumonia Qualifiers: Laterality: right Lung location: upper lobe of lung Qualified Code(s): J18.9 - Pneumonia, unspecified organism Discharge Date/Time: 12/17/19 21:11 Instructions: DI for Pneumonia -- Adult Activity Restrictions/Additional Instructions: Thank you for trusting us with your care today. I am sorry that your are feeling poorly and wish you a speedy recovery. Today we did a lot of lab work and imaging. What we found was mostly reassuring, including no evidence of pulmonary embolism or deep vein thrombosis. We did find what looks to be a nodularity in her right upper lobe that correlates with pneumonia. I have started you on antibiotics. I sent this prescription to [facility] in [place]. We have given you your 1st dose in the emergency department. There is also evidence main pulmonary artery. This is very nonspecific, can be congenital, but can also indicate further etiologies such as pulmonary hypertension, so it is very important that you get follow-up. As discussed please take these antibiotics with probiotic or yogurt to help alleviate any potential antibiotic associated diarrhea. Please follow-up with your surgeon as scheduled tomorrow please follow-up with primary care provider. As discussed, please come back to the emergency department for any acute concerns. We have also swabbed you for coronavirus, we will call you if these results are positive or negative. They generally result in the next 24-48 hours. In the meantime, please act as though you are sick and self quarantine at home. As discussed, please follow-up with primary care provider in the next 48 hours or so, and follow-up with your surgeon tomorrow. Prescriptions: New doxycycline hyclate 100 mg capsule 100 mg PO BID 7 Days Qty: 14 RF: 0 amoxicillin-pot clavulanate [Augmentin] 875-125 mg tablet 1 tab PO BID 7 Days Qty: 14 RF: 0 Referrals: [facility] [Outside] <Smiley Marroquin MD - Last Filed: 12/20/19 12:56> Cosign ED Attending Cosignature Attestation: I was immediately available in the department for consultation throughout this patient's visit. I agree with documentation as above. Smiley Marroquin MD
[2019-12-19 11:36] LABS: COVID19 Sendout Not Detected (Not Detected)
== END 2019-12-17 21:11 | disposition home or self-care (01) ==
PROVIDERS: Emergency Provider Nurse Practitioner Family
DX: J18.9 Pneumonia, unspecified organism (principal); Z98.890 Other specified postprocedural states; R79.89 Other specified abnormal findings of blood chemistry; L02.91 Cutaneous abscess, unspecified; R07.89 Other chest pain
CPT/HCPCS: 36415; 71275; 74177; 80053; 81003; 81025; 82550; 83605; 83735; 83880; 84145; 84484; 84703; 85025; 85379; 85610; 85730; 87635; 93005; 93970; 99284; Q9967

== ENCOUNTER → 2020-11-09 13:13 | Outpatient (CLI) | payer OTHER, SELFPAY ==
--- NOTE | 2020-11-09 13:27 | DI.CT.S_ITS ---
PROCEDURE: CT ANGIO CHEST INDICATIONS: PULMONARY ARTERY ANOMALY TECHNIQUE: After the administration of intravenous contrast, 2 mm thick sections acquired from the pulmonary apices to the posterior costophrenic angles. 3-dimensional maximum intensity projection (MIP) coronal and sagittal reformats were then acquired through the thorax. For radiation dose reduction, the following was used: automated exposure control, adjustment of mA and/or kV according to patient size. COMPARISON: [facility], CT, CT ABDOMEN PELVIS W CON, 12/17/2019, 17:00. [facility], CT, CT ANGIO CHEST PE PROTOCOL, 12/17/2019, 17:00. FINDINGS: Image quality: Excellent. Pulmonary arteries: The main pulmonary artery remains prominent measuring 3.3 cm, compared to approximately 3.5 cm on prior exam.. Lungs and pleura: Lungs are clear. No pleural effusions or pneumothorax. Central and peripheral airways are patent. Mediastinum: Heart size is normal, without pericardial effusion. No mediastinal or hilar adenopathy. Thoracic aorta is normal in caliber and enhancement. Esophagus is normal in caliber, without hiatal hernia. Bones and chest wall: No suspicious bony lesions. Ribs and thoracic spine appear intact throughout. Thyroid gland is unremarkable. No axillary or supraclavicular adenopathy. Abdomen: Scattered attenuation foci are present within liver, unchanged. Visualized upper abdominal solid organs appear normal in the early arterial phase of enhancement. IMPRESSION: 1. Persistent although slightly less prominent appearance of main pulmonary artery enlargement consistent with pulmonary artery hypertension. 2. Unchanged low-attenuation hepatic foci too small to definitively characterize but suggestive of cysts. Dictated by: Joelle Lindsay M.D. on 11/09/2020 at 15:25 Approved by: Joelle Lindsay M.D. on 11/09/2020 at 15:31
== END ==
PROVIDERS: PCP Physician Assistant Medical; Referring Provider Physician Assistant Medical; Visit Provider Physician Assistant Medical
DX: Q25.79 Other congenital malformations of pulmonary artery (principal)
CPT/HCPCS: 71275; Q9967

== ENCOUNTER → 2020-12-16 08:01 | Outpatient (CLI) | payer OTHER, SELFPAY ==
--- NOTE | 2020-12-16 | DI.ECHO.S_ITS ---
[facility]---------+ [facility] +---------+ : : [address] [place] [address] : : : : [id number] : : : : Phone: [phone]+ Echocardiogram Report + + :Name: GLO CA Study Date: 12/16/2020 Height: 66.5 in: :[facility] ReadingLocation: Weight: 155 lb : : Gender: Female BSA: 1.8 m2 : :: 1985 Age: 35 yrs BP: 129/86 mmHg: :Reason For Study: PULMONARY HYPERTENSION : :Ordering Physician: TARA, : :MARY Performed By: Betsey Ireland : :Referring: MARY PACHECO : + + Interpretation Summary The ejection fraction is estimated to be 55-60%. There is trace tricuspid regurgitation. Pulmonary artery pressures cannot be estimated because of the lack of a measurable TR jet velocity but the IVC suggests a CVP of around 3 mmHg. Procedure: A two-dimensional transthoracic echocardiogram with color flow and Doppler was performed. The study quality was technically adequate. There is no prior echocardiogram noted for this patient. The patient was in sinus rhythm with heart rates between 66-83 bpm during the exam. Left Ventricle: The left ventricle is normal in size and wall thickness. The ejection fraction is estimated to be 55-60%. Left ventricular wall motion is normal. Diastolic parameters suggest probable normal left ventricular diastolic function and normal filling pressures. Right Ventricle: The right ventricle is normal in size and function. Atria: Both atria are normal in size. Mitral Valve: The mitral valve is normal in structure and function. There is trace mitral regurgitation. Aortic Valve: The aortic valve is trileaflet. The aortic valve opens well. There is no aortic valve stenosis. No aortic regurgitation is present. Tricuspid Valve: The tricuspid valve is normal in structure and function. There is trace tricuspid regurgitation. Pulmonary artery pressures cannot be estimated because of the lack of a measurable TR jet velocity but the IVC suggests a CVP of around 3 mmHg. Pulmonic Valve: The pulmonic valve leaflets are thin and pliable; valve motion is normal. There is no pulmonic valvular regurgitation. Great Vessels: The aortic root is normal size. The dimensions of the ascending aorta are normal. The IVC is of normal diameter and collapses greater than 50% with a sniff. This suggests a low right atrial pressure of 3 mm Hg. Pericardium/ Pleura There is no pericardial effusion. There is no pleural effusion. MMode/2D Measurements & Calculations LVIDd: 5.1 cm LVOT diam: 2.0 cm LVIDs: 3.5 cm Ao root diam: 2.7 cm FS: 30.9 % asc Aorta Diam: 2.9 cm IVSd: 0.59 cm Ao Arch Diam (Prox Trans): 2.3 cm LVPWd: 0.66 cm LV last. diameter/BSA (cm/m^2): 2.8 LV sys. diameter/BSA (cm/m^2): 2.0 LA A2 area: 16.9 cm2 RA long axis: 4.3 cm LA A4 area: 16.3 cm2 RA area: 13.5 cm2 LA length (vol): 5.0 cm RA vol: 35.9 ml LA vol: 47.0 ml RA : 19.9 ml/m2 LA vol index: 26.1 ml/m2 IVC diam: 1.7 cm RVD1 (basal): 3.5 cm TAPSE: 2.3 cm Doppler Measurements & Calculations Ao V2 max: 138.5 cm/sec LVOT Max Gil: 110.0 cm/sec Ao V2 mean: 101.4 cm/sec LV V1 max P.8 mmHg Ao max P.7 mmHg LV V1 VTI: 22.9 cm Ao mean P.5 mmHg JUDITH(I,D): 2.4 cm2 Ao V2 VTI: 29.5 cm JUDITH(V,D): 2.4 cm2 sev ratio: 0.78 JUDITH indexed to BSA (cm^2/m^2): 1.3 MV E max gil: 73.7 cm/sec TR max gil: 220.4 cm/sec MV A max gil: 54.9 cm/sec TR max P.4 mmHg MV E/A: 1.3 PA V2 max: 122.6 cm/sec Med Peak E' Gil: 10.4 cm/sec PA V2 mean: 80.7 cm/sec E/E' med: 7.1 PA mean P.0 mmHg Lat Peak E' Gil: 15.1 cm/sec PA pr(Accel): -4.9 mmHg E/E' lat: 4.9 E/e' average: 6.0 MV dec time: 0.20 sec SV(LVOT): 70.2 ml Reading Physician:10:06 AM
== END ==
PROVIDERS: PCP Physician Assistant Medical; Referring Provider Internal Medicine Critical Care Medicine; Visit Provider Internal Medicine Critical Care Medicine
DX: I27.20 Pulmonary hypertension, unspecified (principal)
CPT/HCPCS: 93306

== ENCOUNTER 2023-09-05 14:42 | Emergency (ER) | payer OTHER, SELFPAY ==
[2023-09-05] VITALS (7 sets, daily range): BP systolic 88–110; BP diastolic 56–70; PULSE 72–91; RESP 18; TEMP 36.6; O2SAT 97–100; BMI 26.1
--- NOTE | 2023-09-05 14:49 | DI.RAD.S_ITS ---
PROCEDURE: XR FOREARM LT 2V INDICATIONS: eval for fracture TECHNIQUE: 2 views of the forearm were acquired. COMPARISON: None. FINDINGS: Bones: Comminuted distal intra-articular radial fracture with minimal dorsal angulation. Distal radial ulnar joint dislocation Soft tissues: No suspicious soft tissue calcifications or masses. IMPRESSION: Comminuted intra-articular distal radial fracture with dorsal angulation Approved by: Rishabh Cantu M.D. on 09/05/2023 at 16:54
--- NOTE | 2023-09-05 14:51 | ED.GENADULT ---
HPI - General Adult General Chief complaint: Extremity Injury, Upper Stated complaint: GLF Time Seen by Provider: 09/05/23 14:44 Source: patient Mode of arrival: EMS History of Present Illness HPI narrative: 37-year-old female who brought in by EMS for evaluation of a left forearm injury. Patient states she was skating at the time when she fell and landed on her bottom and also put her arm out. Has a deformity of the left forearm. Was placed in a splint and a sling by EMS. Did not receive any medications prior to arrival. No other injuries from the event. Related Data Previous Rx's Medication Instructions Recorded hydrocodone 5 mg-acetaminophen 325 1 tab PO Q4-6H PRN pain #20 tabs 09/05/23 mg tablet Allergies Allergy/AdvReac Type Severity Reaction Status Date / Time amoxicillin Allergy Verified 09/05/23 14:46 Review of Systems Constitutional Constitutional: Reports system reviewed and no additional complaints, except as documented Musculoskeletal Musculoskeletal: Reports system reviewed and no additional complaints, except as documented Integumentary/Breasts Skin/Breast: Reports system reviewed and no additional complaints, except as documented Patient History Surgical History (Updated 12/17/19 @ 21:02 by RAQUEL Rasmussen) History of appendectomy Social History Smoking Status: Never smoker Smoking Status: Never smoker alcohol intake frequency: holidays/special occasions only Substance Use Type: does not use Exam Initial Vital Signs Initial Vital Signs: Vital Signs Temperature 97.8 F 09/05/23 14:40 Pulse Rate 72 09/05/23 14:40 Respiratory Rate 18 09/05/23 14:40 Blood Pressure 96/56 L 09/05/23 14:40 Pulse Oximetry 100 09/05/23 14:40 Oxygen Delivery Method Room Air 09/05/23 14:40 Cardio Pulses: radial pulses present on the left Skin General: no rashes or lesions noted Neuro General: patient alert, patient awake and moves all extremities Sensory Exam: no sensory deficits noted Extrem Other: Discomfort with deformity to the left forearm. Left elbow and left shoulder unremarkable. Procedures Orthopedic Splinting/Casting Injury #1: Side: left Upper Extremity Injury Location: forearm Upper Extremity Immobilizer: sugar tong splint Post splinting neuro exam: intact Post splinting vascular exam: intact Placed by: Provider Course Orders Ordered: ED Orders 09/05/23 14:49 XR forearm LT 2V Stat 09/05/23 16:16 XR elbow LT min 3V Stat XR wrist LT min 3V Stat Discontinued Medications Hydromorphone HCl (Hydromorphone 1 Mg Inj) 1 mg IV NOW ONE Stop: 09/05/23 16:53 Last Admin: 09/05/23 17:04 Dose: 1 mg Documented By: KAMERON Morphine Sulfate (Morphine 4 Mg/Ml Inj) 4 mg IV NOW ONE Stop: 09/05/23 14:51 Last Admin: 09/05/23 14:59 Dose: 4 mg Documented By: KAMERON Ondansetron HCl (Ondansetron 4 Mg/2 Ml Inj) 4 mg IV NOW ONE Stop: 09/05/23 14:51 Last Admin: 09/05/23 14:59 Dose: 4 mg Documented By: KAMERON Vital Signs Vital signs: Vital Signs - 8 hr 09/05/23 14:40 09/05/23 15:52 09/05/23 15:53 Temperature 97.8 F Pulse Rate 72 Respiratory Rate 18 Blood Pressure 96/56 L 88/58 L 100/59 L Pulse Oximetry 100 Oxygen Delivery Method Room Air 09/05/23 16:00 09/05/23 17:00 09/05/23 17:40 Temperature Pulse Rate 91 H Respiratory Rate Blood Pressure 95/60 104/64 Pulse Oximetry 97 Oxygen Delivery Method 09/05/23 17:41 09/05/23 17:41 Temperature Pulse Rate 81 Respiratory Rate Blood Pressure 110/70 Pulse Oximetry 99 Oxygen Delivery Method Medical Decision Making Imaging Data Extremity x-ray #1: Radiologist's Impression: PROCEDURE: XR FOREARM LT 2V INDICATIONS: eval for fracture TECHNIQUE: 2 views of the forearm were acquired. COMPARISON: None. FINDINGS: Bones: Comminuted distal intra-articular radial fracture with minimal dorsal angulation. Distal radial ulnar joint dislocation Soft tissues: No suspicious soft tissue calcifications or masses. IMPRESSION: Comminuted intra-articular distal radial fracture with dorsal angulation Extremity x-ray #2: Radiologist's Impression: PROCEDURE: XR ELBOW LT MIN 3V INDICATIONS: pain after fall TECHNIQUE: 3 views of the elbow were acquired. COMPARISON: None. FINDINGS: Bones: No fractures or dislocations. No suspicious bony lesions. Soft tissues: No elbow joint effusion. No suspicious soft tissue calcifications. IMPRESSION: No acute bony abnormality or significant joint effusion. Extremity x-ray #3: Radiologist's Impression: PROCEDURE: XR WRIST LT MIN 3V INDICATIONS: distal radius fracture TECHNIQUE: 3 views of the wrist were acquired. COMPARISON: None. FINDINGS: Bones: Comminuted intra-articular distal radial fracture with foreshortening and splaying of the fracture fragments associated with dislocation of the distal radial ulnar joint. No additional fracture present. Normal bone mineralization. Soft tissues: No suspicious soft tissue calcifications. IMPRESSION: Comminuted intra-articular distal radial fracture with foreshortening MDM Narrative Medical decision making narrative: Patient is neurovascularly intact. Has a isolated distal radius fracture. She was splinted as described above. Follow-up with orthopedic surgery. She expressed understanding and agreement with plan. Discharge Plan Departure Patient Disposition: Home Clinical Impression: Distal radius fracture, left Instructions: DI for Wrist Fracture, How to Take Care of Your Splint Activity Restrictions/Additional Instructions: The splint that was placed today needs to be treated like a cast. You need to keep it on and keep it clean and keep it dry. Contact the Orthopedic Department of the number provided below for a follow-up. Return to the emergency department for new or worsening symptoms. Prescriptions: New hydrocodone-acetaminophen 5-325 mg tablet 1 tab PO Q4-6H PRN (Reason: pain) Qty: 20 0RF Referrals: Medardo Martinez PA-C [Primary Care Provider] - Asad Leahy MD [Physician] - Stand Alone Forms: Patient Portal/API
[2023-09-05] MEDS: ONDANSETRON 4 MG/2 ML INJ IV (14:59)
[2023-09-05] MEDS: MORPHINE 4 MG/ML INJ IV (14:59)
--- NOTE | 2023-09-05 16:16 | DI.RAD.S_ITS ---
PROCEDURE: XR ELBOW LT MIN 3V INDICATIONS: pain after fall TECHNIQUE: 3 views of the elbow were acquired. COMPARISON: None. FINDINGS: Bones: No fractures or dislocations. No suspicious bony lesions. Soft tissues: No elbow joint effusion. No suspicious soft tissue calcifications. IMPRESSION: No acute bony abnormality or significant joint effusion. Approved by: Rishabh Cantu M.D. on 09/05/2023 at 16:59
--- NOTE | 2023-09-05 16:16 | DI.RAD.S_ITS ---
PROCEDURE: XR WRIST LT MIN 3V INDICATIONS: distal radius fracture TECHNIQUE: 3 views of the wrist were acquired. COMPARISON: None. FINDINGS: Bones: Comminuted intra-articular distal radial fracture with foreshortening and splaying of the fracture fragments associated with dislocation of the distal radial ulnar joint. No additional fracture present. Normal bone mineralization. Soft tissues: No suspicious soft tissue calcifications. IMPRESSION: Comminuted intra-articular distal radial fracture with foreshortening Approved by: Rishabh Cantu M.D. on 09/05/2023 at 17:05
[2023-09-05] MEDS: HYDROMORPHONE 1 MG INJ IV (17:04)
== END 2023-09-05 18:04 | disposition home or self-care (01) ==
PROVIDERS: Emergency Provider Emergency Medicine; PCP Physician Assistant Medical
DX: S52.572A Other intraarticular fracture of lower end of left radius, initial encounter for closed fracture (principal); W18.30XA Fall on same level, unspecified, initial encounter; Y93.51 Activity, roller skating (inline) and skateboarding
CPT/HCPCS: 29125; 73080; 73090; 73110; 96374; 96375; 99284; J1170; J2270; J2405